=== PATIENT | female | born 1950 | race Hispanic/Latino ===

== ENCOUNTER 2020-11-08 18:32 | Emergency (ER) | payer MEDICARE ==
[~2020-11-08] VITALS: Ht 149.9 cm; Wt 72.1 kg
[2020-11-08] MEDS ORDERED: IBUPROFEN 600 MG TAB PO STA (19:18)
[2020-11-08] MEDS ORDERED: IBUPROFEN 600 MG TAB ONE (19:39)
[2020-11-08] MEDS ORDERED: KETOROLAC TROMETHAMINE 60 MG/2 ML VIAL ONE (19:42)
[2020-11-08] MEDS ORDERED: KETOROLAC TROMETHAMINE 60 MG/2 ML VIAL IM ONE (19:45)
[2020-11-08] MEDS ORDERED: CYCLOBENZAPRINE5 MG PO (20:32)
[2020-11-08] MEDS ORDERED: PREDNISONE20 MG PO (20:32)
== END 2020-11-08 19:25 | disposition home or self-care (01) ==
LOC: FSED 18:50
DX: M25.512 Pain in left shoulder (principal); S43.402A Unspecified sprain of left shoulder joint, initial encounter; W17.89XA Other fall from one level to another, initial encounter; Y92.008 Other place in unspecified non-institutional (private) residence as the place of occurrence of the external cause; I10 Essential (primary) hypertension
CPT/HCPCS: 99283; J1885